=== PATIENT | female | born 1985 | race Caucasian/White ===

== ENCOUNTER 2017-09-30 19:06 | Outpatient (CLI) | END 2017-09-30 21:30 | disposition home or self-care (01) ==

== ENCOUNTER 2018-01-16 12:06 | Outpatient (CLI) | END 2018-01-16 15:30 | disposition home or self-care (01) ==

== ENCOUNTER 2018-01-26 14:45 | Inpatient (IN) | END 2018-01-29 13:55 | disposition home or self-care (01) | DRG 775 ==